=== PATIENT | female | born 1960 | race Caucasian/White ===

== ENCOUNTER 2020-10-08 10:51 | Emergency (ER) | payer MEDICARE ==
[~2020-10-08] VITALS: Ht 157.5 cm; Wt 79.3 kg
--- NOTE | 2020-10-08 11:26 | NUR ---
PT WALKED BACK FROM TRIAGE WITH CHIEF COMPLAINT OF BANG, FEVER, CHILLS, PAIN, COUGH, AND NAUSEA SINCE THURSDAY AFTERNOON.
--- NOTE | 2020-10-08 11:34 | NUR ---
[facility]MD LAW AT BEDSIDE FOR EVAL
[2020-10-08] MEDS ORDERED: KETOROLAC 30 MG/1 ML IVPush ONE (12:00)
[2020-10-08] MEDS ORDERED: SODIUM CHLORIDE 0.9% 1,000ML IVBOLUS ONE (12:00)
[2020-10-08 12:10] LABS: ALANINE AMINOTRANSFERASE 66 U/L (12-78); ALBUMIN 3.8 g/dL (3.4-5.0); ANION GAP 11 mmol/L (5-15); BASOPHILS % (AUTO) 0 % (0-1); C-REACTIVE PROTEIN, QUANT 0.67 mg/dL (0.02-0.49); CALCIUM 9.3 mg/dL (8.5-10.1); CHLORIDE 107 mmol/L (98-107); CREATININE 0.95 mg/dL (0.55-1.02); EOSINOPHILS % (AUTO) 0 % (1-7); LYMPHOCYTES % (AUTO) 9 % (22-44); MEAN CORPUSCULAR HEMOGLOBIN 29.8 pg (27.0-34.8); MEAN CORPUSCULAR HGB CONC 34.5 g/dL (32.4-35.8); MEAN PLATELET VOLUME 8.1 fL (7.4-10.4); MONOCYTES % (AUTO) 9 % (2-9); NEUTROPHILS % (AUTO) 81 % (42-75); PLATELET COUNT 207 x10^3/uL (130-400); RED BLOOD COUNT 5.12 x10^6/uL (3.82-5.3); RED CELL DISTRIBUTION WIDTH 13.7 % (9.6-15.2)
[2020-10-08 12:12] LABS: ALKALINE PHOSPHATASE 90 U/L (45-117); BILIRUBIN,TOTAL 1.7 mg/dL (0.2-1.0); TOTAL PROTEIN 7.5 g/dL (6.4-8.2)
--- NOTE | 2020-10-08 12:15 | NUR ---
Pt resting in bed, aware of needed urine sample.
[2020-10-08] MEDS ORDERED: ACETAMINOPHEN 500 MG TABLET ONE (12:22)
[2020-10-08] MEDS ORDERED: KETOROLAC 30 MG/1 ML ONE (12:22)
[2020-10-08] MEDS ORDERED: ACETAMINOPHEN 500 MG TABLET PO ONE (12:30)
--- NOTE | 2020-10-08 13:55 | NUR ---
cail Law bedisde to discuss poc
[2020-10-08 14:01] VITALS: BP 104/64
== END 2020-10-08 14:22 | disposition home or self-care (01) ==
LOC: ED 11:46
DX: J06.9 Acute upper respiratory infection, unspecified (principal); R07.89 Other chest pain; R00.0 Tachycardia, unspecified; I10 Essential (primary) hypertension; J45.909 Unspecified asthma, uncomplicated; Z90.49 Acquired absence of other specified parts of digestive tract; E03.9 Hypothyroidism, unspecified
CPT/HCPCS: 71045; 80053; 83605; 84145; 85025; 86140; 87040; 93005; 96361; 96374; 99285; J1885; J7030